=== PATIENT | male | born 1980 | race Caucasian/White ===

== ENCOUNTER 2019-01-13 12:09 | Emergency (ER) | payer BC ==
--- NOTE | 2019-01-13 12:31 | RAD ---
XR Chest 1 View Portable History: Chest pain Comparison: None. Findings: Heart size mildly enlarged. No pneumothorax. No effusion. No acute osseous abnormality. Impression: Mild cardiomegaly otherwise unremarkable exam.
[2019-01-13 12:41] LABS: #Lymphocytes 1.2 thou/uL (1.20-3.40); #Monocytes 0.7 thou/uL (0.11-0.59); #Neutrophils 13.7 thou/uL (1.40-6.50); %Basophils 0.2 % (0.0-1.0); %Eosinophils 0.3 % (0.0-10.0); %Lymphocytes 7.9 % (21.0-51.0); %Monocytes 4.4 % (0.0-10.0); %Neutrophils 87.3 % (42.0-75.0); Hemoglobin 14.4 g/dL (14.0-18.0); Mean Corpuscular HGB CONC 33.8 g/dL (32.0-36.0); Mean Corpuscular Hemoglobin 29.7 pg (27.0-31.0); Mean Corpuscular Volume 87.8 fL (78.0-98.0); Mean Platelet Volume 7.8 fL (7.4-10.4); Platelet Count 233 thou/uL (130-400); RBC Distribution Width 12.4 % (11.5-14.5); Red Blood Cell (RBC) Count 4.84 mill/uL (4.70-6.10); White Blood Cell (WBC) Count 15.7 thou/uL (4.8-10.8)
[2019-01-13] MEDS ORDERED: Milk Of Magnesia 30 ML UDCUP ONE (12:52)
[2019-01-13] MEDS ORDERED: Lidocaine Viscous Sol 2% 15 ml UD Cup ONE ×2 (12:52→12:56)
[2019-01-13] MEDS ORDERED: Mag-Al 1200 mg/1200 mg/30 ML UDCUP ONE (12:52)
[2019-01-13] MEDS ORDERED: Sodium Chloride 0.9% (PF) 10 ML VIAL FS PRN (13:02)
[2019-01-13 13:07] LABS: ALT (SGPT) 28 U/L (8-55); AST (SGOT) 18 U/L (5-34); Albumin 4.8 g/dL (3.5-5.0); Alkaline Phosphatase 59 U/L (40-150); Anion Gap 13 mmol/L (10-20); BUN (Urea Nitrogen) 10 mg/dL (8.9-20.6); Bilirubin, Total 0.4 mg/dL (0.2-1.2); CK (CPK) 279 U/L (30-200); Calc. Creatinine Clearance 0 mL/min (70-130); Calcium 9.8 mg/dL (7.8-10.44); Carbon Dioxide 22 mmol/L (22-29); Chloride 104 mmol/L (98-107); Estimated GFR-MDRD 85; Globulin 2.3 g/dL (2.4-3.5); Glucose 107 mg/dL (70-105); Lipase 20 U/L (8-78); Potassium 4.2 mmol/L (3.5-5.1); Protein, Total 7.1 g/dL (6.0-8.3); Sodium 135 mmol/L (136-145)
[2019-01-13] MEDS ORDERED: Pantoprazole 40 MG VIAL IVP SCH (13:15)
[2019-01-13] MEDS ORDERED: Ketorolac Tromethamine 30 MG/ML VIAL ONE (14:51)
--- NOTE | 2019-01-16 23:43 | EKG ---
Test Reason : Blood Pressure : / mmHG Vent. Rate : 089 BPM Atrial Rate : 089 BPM P-R Int : 136 ms QRS Dur : 086 ms QT Int : 346 ms P-R-T Axes : 034 021 025 degrees QTc Int : 420 ms Normal sinus rhythm Early repolarization Normal ECG Confirmed by VIOLA QUINONEZ ([id number]), associate editor EMILIA PATTEN ([id number]) on 01/16/2019 11:42:48 PM Referred By: Confirmed By:VIOLA QUINONEZ
--- NOTE | 2019-01-17 00:48 | EKG ---
Test Reason : Blood Pressure : / mmHG Vent. Rate : 087 BPM Atrial Rate : 087 BPM P-R Int : 132 ms QRS Dur : 084 ms QT Int : 348 ms P-R-T Axes : 028 015 023 degrees QTc Int : 418 ms Normal sinus rhythm ST elevation, consider early repolarization ADELAIDA, no reciprocal change Borderline ECG Confirmed by VIOLA QUINONEZ ([id number]), editor & co founder EMILIA PATTEN ([id number]) on 01/17/2019 12:48:27 AM Referred By: Confirmed By:VIOLA QUINONEZ
== END 2019-01-13 16:13 | disposition home or self-care (01) ==
LOC: ERS 12:09
DX: R07.89 Other chest pain (principal); K21.9 Gastro-esophageal reflux disease without esophagitis; E78.5 Hyperlipidemia, unspecified; I10 Essential (primary) hypertension; F41.9 Anxiety disorder, unspecified; F32.9 Major depressive disorder, single episode, unspecified; F17.210 Nicotine dependence, cigarettes, uncomplicated
CPT/HCPCS: 36415; 71045; 80053; 82550; 83690; 84484; 85025; 93005; 96374; 96375; C9113; J1885